=== PATIENT | male | born 1980 | race Caucasian/White ===

== ENCOUNTER → 2016-10-27 | Outpatient (CLI) | payer OTHER ==
[~2016-10-27] MED LIST: TYLOTC500 PO; VITATAB16 PO
--- NOTE | 2016-10-27 09:49 | DIAGNOSTIC IMAGING REPORT ---
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 There are postsurgical changes involving the distal femur. There are postsurgical changes of a prior distal amputation. There is either an accessory distal femoral bone, or the patient is status post a prior bone graft or there is unusual heterotopic ossification. IMPRESSION: No significant change from the preceding study. Postsurgical changes. No acute fractures. Electronically signed by: Hasmukh Parr M.D. 10/27/2016 9:48 AM Dictated Date/Time: 10/27/2016 9:45 AM
== END | disposition home or self-care (01) ==
LOC: C.RDSM 09:22
PROVIDERS: ATTEND Physician Assistant
DX: M79.605 Pain in left leg (principal)

== ENCOUNTER 2017-10-03 19:53 | Emergency (ER) | payer OTHER ==
[2017-10-03 20:19] VITALS: TEMP 37
[2017-10-03 20:47] LABS: BASO % 0.3 %; BASO ABS # 0.02 K/uL (0-0.2); EOS % 2.3 %; EOS ABS # 0.17 K/uL (0-0.5); HEMATOCRIT 49.7 % (42-52); HEMOGLOBIN 17.4 g/dL (14.0-18.0); IG# 0.06 K/uL (0.00-0.02); LYMPH % 30.2 %; LYMPH ABS # 2.23 K/uL (1.2-3.4); MEAN CELL VOLUME 84.8 fL (80-100); MEAN CORPUSCULAR HEMOGLOBIN 29.7 pg (25-34); MEAN PLATELET VOLUME 9.6 fL (7.4-10.4); MONO % 11.7 %; MONO ABS # 0.86 K/uL (0.11-0.59); NEUT % 54.7 %; NEUT ABS # 4.04 K/uL (1.4-6.5); PLATELET COUNT 265 K/uL (130-400); RED CELL DISTRIBUTION WIDTH CV 14.5 % (11.5-14.5); RED CELL DISTRIBUTION WIDTH SD 44.9 fL (36.4-46.3); WHITE BLOOD COUNT 7.38 K/uL (4.8-10.8)
[2017-10-03 21:07] LABS: BLOOD UREA NITROGEN 19 mg/dl (7-18); CALCIUM 8.7 mg/dl (8.5-10.1); CARBON DIOXIDE 27 mmol/L (21-32); CREATININE 0.89 mg/dl (0.60-1.40); GLUCOSE 93 mg/dl (70-99); POTASSIUM 3.8 mmol/L (3.5-5.1); SODIUM 139 mmol/L (136-145)
[2017-10-03] MEDS ORDERED: RMR15 PO (21:31)
[2017-10-03] MEDS ORDERED: FLM4 PO (21:31)
--- NOTE | 2017-10-03 21:35 | DIAGNOSTIC IMAGING REPORT ---
L FEMUR 2 VIEWS ROUTINE CLINICAL HISTORY: leg pain pain COMPARISON: None. DISCUSSION: Deformity and dysplastic change left hip. Chronic superior dislocation. Benign bony exostosis of the mid femoral shaft. Operative changes as well as a amputation at the level of the distal femur. Fragments overlying the distal femur appear to be at least partially exposed and a well-corticated. A major bony destructive process is not seen. There is no evidence for soft tissue swelling. 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 No well-defined acute abnormality. The above report was generated using voice recognition software. It may contain grammatical, syntax or spelling errors. Electronically signed by: Rakesh Mendez M.D. 10/03/2017 9:33 PM Dictated Date/Time: 10/03/2017 9:31 PM
--- NOTE | 2017-10-03 21:59 | EMERGENCY ROOM VISIT NOTE ---
History Report prepared by Jordan: Galen Trinh Under the Supervision of: Fabiola TorresO. First contact with patient: 20:22 Chief Complaint: SWELLING TO EXTREMITY Stated Complaint: PAIN SWELLING L STUMP History of Present Illness The patient is a 36 year old male who presents to the Emergency Room with complaints of persistent left lower extremity swelling for one month. He notes he had a staph infection at and his left lower extremity was amputated at . He states the swelling to his lower extremity is abnormal and it appears to be twice as big. He notes there is pain to the left lower stump. He currently rates his pain a 5/10 in severity. He denies any fevers. Source of History: patient Onset: one month Position: leg (left lower stump) Symptom Intensity: 5/10 Quality: other (swelling) Timing: other (persistent) Associated Symptoms: No fevers Note: He notes pain to his left lower stump. Review of Systems See HPI for pertinent positives & negatives. A total of 10 systems reviewed and were otherwise negative. 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 Surgical Problems: (1) Above Knee Amputation Status Family History Cancer Social History Smoking Status: Current Every Day Smoker Alcohol Use: occasionally Marital Status: single Housing Status: other ([employer]) Occupation Status: employed Current/Historical Medications Scheduled Mirtazapine (Mirtazapine), 30 MG PO HS Tamsulosin HCl (Tamsulosin HCl), 0.4 MG PO HS Allergies Coded Allergies: No Known Allergies (Unverified , 01/14/14) Physical Exam Vital Signs Date Time Temp Pulse Resp B/P (MAP) Pulse Ox O2 Delivery O2 Flow Rate FiO2 18 20:19 37.0 108 20 135/87 98 Room Air Physical Exam CONSTITUTIONAL/VITAL SIGNS: Reviewed / noted above. GENERAL: Non-toxic in appearance. INTEGUMENTARY: Warm, dry, and [place]. HEAD: Normocephalic. EYES: without scleral icterus or trauma. ENT/OROPHARYNX: clear and moist. LYMPHADENOPATHY/NECK: Is supple without lymphadenopathy or meningismus. RESPIRATORY: Lungs clear and equal. CARDIOVASCULAR: Regular rate and rhythm. GI/ABDOMEN: Soft and nontender. No organomegaly or pulsatile mass. No rebound or guarding. Normal bowel sounds. EXTREMITIES: Warm and well perfused. Left AKA. No appreciated edema, mild dryness to distal stump. No obvious infection or increased warmth. BACK: No CVA tenderness. NEUROLOGICAL: Intact without focal deficits. PSYCHIATRIC: normal affect. MUSCULOSKELETAL: Normally developed with good muscle tone. Medical Decision & Procedures ER Provider Diagnostic Interpretation: Radiology results as stated below per my review and radiologist interpretation: L FEMUR 2 VIEWS ROUTINE CLINICAL HISTORY: leg pain pain COMPARISON: None. DISCUSSION: Deformity and dysplastic change left hip. Chronic superior dislocation. Benign bony exostosis of the mid femoral shaft. Operative changes as well as a amputation at the level of the distal femur. Fragments overlying the distal femur appear to be at least partially exposed and a well-corticated. A major bony destructive process is not seen. There is no evidence for soft tissue swelling. 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 No well-defined acute abnormality. The above report was generated using voice recognition software. It may contain grammatical, syntax or spelling errors. Electronically signed by: Rakesh Mendez M.D. 10/03/2017 9:33 PM Dictated Date/Time: 10/03/2017 9:31 PM Laboratory Results 10/03/17 20:30 Red Blood Count 5.86, Mean Corpuscular Volume 84.8, Mean Corpuscular Hemoglobin 29.7, Mean Corpuscular Hemoglobin Concent 35.0, Mean Platelet Volume 9.6, Neutrophils (%) (Auto) 54.7, Lymphocytes (%) (Auto) 30.2, Monocytes (%) (Auto) 11.7, Eosinophils (%) (Auto) 2.3, Basophils (%) (Auto) 0.3, Neutrophils # (Auto ) 4.04, Lymphocytes # (Auto) 2.23, Monocytes # (Auto) 0.86, Eosinophils # (Auto ) 0.17, Basophils # (Auto) 0.02 10/03/17 20:30 Test 10/03/17 20:30 White Blood Count 7.38 K/uL (4.8-10.8) Red Blood Count 5.86 M/uL (4.7-6.1) Hemoglobin 17.4 g/dL (14.0-18.0) Hematocrit 49.7 % (42-52) Mean Corpuscular Volume 84.8 fL (80-100) Mean Corpuscular Hemoglobin 29.7 pg (25-34) Mean Corpuscular Hemoglobin Concent 35.0 g/dl (32-36) Platelet Count 265 K/uL (130-400) Mean Platelet Volume 9.6 fL (7.4-10.4) Neutrophils (%) (Auto) 54.7 % Lymphocytes (%) (Auto) 30.2 % Monocytes (%) (Auto) 11.7 % Eosinophils (%) (Auto) 2.3 % Basophils (%) (Auto) 0.3 % Neutrophils # (Auto) 4.04 K/uL (1.4-6.5) Lymphocytes # (Auto) 2.23 K/uL (1.2-3.4) Monocytes # (Auto) 0.86 K/uL (0.11-0.59) Eosinophils # (Auto) 0.17 K/uL (0-0.5) Basophils # (Auto) 0.02 K/uL (0-0.2) RDW Standard Deviation 44.9 fL (36.4-46.3) RDW Coefficient of Variation 14.5 % (11.5-14.5) Immature Granulocyte % (Auto) 0.8 % Immature Granulocyte # (Auto) 0.06 K/uL (0.00-0.02) Anion Gap 6.0 mmol/L (3-11) Estimated GFR () 126.6 Estimated GFR (Non- 109.2 BUN/Creatinine Ratio 21.7 (10-20) Calcium Level 8.7 mg/dl (8.5-10.1) Chemistry Specimen Hemolysis Laboratory results as stated above per my review. ED Course 2023: Previous medical records were reviewed. The patient was evaluated in room C3. A complete history and physical examination was performed. 2157: I reassessed the patient at this time. He is resting comfortably. I discussed the results and treatment plan with the patient. I answered all pertaining questions that he had. He expressed understanding and verbalized agreement. The patient will be discharged home. Medical Decision Differential diagnosis: Etiologies such as DVT, musculoskeletal, infection, joint effusion, trauma, lymphedema, idiopathic, CHF, as well as others were entertained. This is a 36-year-old male who presents to the ED with a chief complaint of swelling to his left femur stump. The patient states that he has had a left BKA since he was a child. He reports that it seems as though it might be swollen. Denies any pain. He has not had any fevers. No nausea vomiting. The distal end of the stump reveals some dried skin but otherwise no changes. The patient's exam is otherwise unremarkable. With regards to the swelling, there is no tenseness in the skin. Is unclear if the extremity is swollen or not right as this has not been visualized previously. The skin is soft and pliable. There is no obvious infection. The skin is warm and dry without discharge. There is no clinical findings to suggest lack of vascular flow. CBC and PRP are normal. X-ray of the femur did not show any acute process. Details listed above. The patient was told the results. He is felt to be stable for discharge. Medication Reconcilliation Current Medication List: was personally reviewed by me Blood Pressure Screening Patient's blood pressure: Normal blood pressure Impression Primary Impression: Swelling of left extremity Scribe Attestation The scribe's documentation has been prepared under my direction and personally reviewed by me in its entirety. I confirm that the note above accurately reflects all work, treatment, procedures, and medical decision making performed by me. Departure Information Dispostion Home / Self-Care Referrals No Doctor, Assigned (PCP) Forms HOME CARE DOCUMENTATION FORM, IMPORTANT VISIT INFORMATION, WORK / SCHOOL INSTRUCTIONS Patient Instructions My [facility] Additional Instructions Follow-up with your doctor for further care and evaluation in 1-2 days. Return to the emergency department for worsening or new symptoms or any concerns. You have been examined and treated today on an emergency basis only. This is not a substitute for, or an effort to provide, complete comprehensive medical care. It is impossible to recognize and treat all injuries or illnesses in a single emergency department visit. It is therefore important that you follow up closely with your doctor. Call as soon as possible for an appointment.
[2017-10-03 22:07] VITALS: BP 142/77; PULSE 92; O2SAT 97
== END 2017-10-03 22:08 | disposition home or self-care (01) ==
LOC: C.EDB 19:55 → C.EDC 22:08
DX: M79.89 Other specified soft tissue disorders (principal); Z89.612 Acquired absence of left leg above knee; Z80.9 Family history of malignant neoplasm, unspecified; F17.210 Nicotine dependence, cigarettes, uncomplicated; Z79.899 Other long term (current) drug therapy